=== PATIENT | male | born 1985 | race Caucasian/White ===

== ENCOUNTER 2016-10-13 17:53 | Emergency (ER) | payer OTHER ==
[~2016-10-13] VITALS: Ht 175.3 cm; Wt 72.6 kg
[2016-10-13 18:29] VITALS: BP 106/71
--- NOTE | 2016-10-13 18:33 | NUR ---
TO LOBBY PER ERMD.WILL COLLECT URINE SPECIMEN
[2016-10-13] MEDS ORDERED: NACL 0.9% 1,000 ML IV SCH (18:34)
[2016-10-13] MEDS ORDERED: AMPICILLIN/SULBACTAM 3 GM in NACL 0.9% 100 ML IV ONE (18:40)
[2016-10-13] MEDS ORDERED: NACL 0.9% 1,000 ML IV ONE (18:40)
--- NOTE | 2016-10-13 18:40 | NUR ---
Patient to bed 06.
[2016-10-13] MEDS ORDERED: AMPICILLIN/SULBACTAM 3 GM VIAL ONE (18:48)
--- NOTE | 2016-10-13 19:00 | NUR ---
31/M TO ED WITH C/O ABSCESS TO RIGHT ARM X3 DAYS S/P HEROIN USE. ABSCESS RED AND WARM TO TOUCH. PAIN 6/10. LUNGS CLEAR BILAT. HR EVEN AND REGULAR. AAOX4. VSS. NO SIGNS OF DISTRESS.
--- NOTE | 2016-10-13 19:09 | NUR ---
Pt report given to ANA MARIA BOWERS. Transfer of care at this time.
--- NOTE | 2016-10-13 19:33 | NUR ---
LACTIC ACID 2.7. ER MD SHER AND ANA MARIA QUEZADA.
[2016-10-13] MEDS ORDERED: LIDOCAINE 1% 500 MG/50 ML VIAL INJ SCH (19:45)
[2016-10-13 20:34] VITALS: BP 106/71
--- NOTE | 2016-10-13 20:34 | NUR ---
Patient discharged with v/s stable. Written and verbal after care instructions given and explained. Patient verbalized understanding. Ambulatory with steady gait. All questions addressed prior to discharge. Advised to follow up with PMD.
== END 2016-10-13 20:34 | disposition home or self-care (01) ==
LOC: MED 17:53
DX: L02.413 Cutaneous abscess of right upper limb (principal)
CPT/HCPCS: 10060; 36415; 80053; 80305; 81001; 83605; 85025; 87040; 96365; 99285; J0295; J7030

== ENCOUNTER 2017-04-17 19:23 | Emergency (ER) | payer OTHER ==
[~2017-04-17] VITALS: Ht 175.3 cm; Wt 72.6 kg
[2017-04-17 20:11] VITALS: BP 99/66
--- NOTE | 2017-04-17 21:58 | NUR ---
Patient ambulated to OF2 to be evaluated as fast track by Dr. Berrios. RN evaluating patient.
--- NOTE | 2017-04-17 22:04 | NUR ---
Dr. Berrios evaluating patient in OF2.
[2017-04-17 22:22] VITALS: BP 111/68
--- NOTE | 2017-04-17 22:22 | NUR ---
Patient discharged with v/s stable. Written and verbal after care instructions given and explained. Patient alert, oriented and verbalized understanding of instructions. Ambulatory with steady gait. All questions addressed prior to discharge. ID band removed. Patient advised to follow up with PMD. Rx of MINOCYCLINE 100MG, MUPIROCIN 2%, MOTRIN 800 given. Patient educated on indication of medication including possible reaction and side effects. Opportunity to ask questions provided and answered.
== END 2017-04-17 22:22 | disposition home or self-care (01) ==
LOC: MED 19:23
DX: L71.9 Rosacea, unspecified (principal)
CPT/HCPCS: 99283

== ENCOUNTER 2017-04-23 11:08 | Emergency (ER) | payer OTHER ==
[~2017-04-23] VITALS: Ht 175.3 cm; Wt 68.0 kg
--- NOTE | 2017-04-23 11:08 | NUR ---
Patient BIBA [facility], transferred to bed 3. RN evaluating patient at bedside.
[2017-04-23 11:17] VITALS: BP 92/58
[2017-04-23] MEDS ORDERED: NACL 0.9% 1,000 ML IV ONE (11:20)
--- NOTE | 2017-04-23 11:20 | NUR ---
31 YO MALE BIB EMS FROM FIELD FOR ALOC DUE TO ETOH. DENIES N/V/D; SKIN IS PINK/WARM/DRY; AAOX4 WITH EVEN AND STEADY GAIT; LUNGS CLEAR BL; HR EVEN AND REGULAR; PT DENIES ANY FEVER, CP, SOB, OR COUGH AT THIS TIME; PATIENT STATES PAIN OF 0/10 AT THIS TIME; PATIENT POSITIONED FOR COMFORT; HOB ELEVATED; BEDRAILS UP X2; BED DOWN. ER MD MADE AWARE OF PT STATUS.
--- NOTE | 2017-04-23 11:31 | NUR ---
PT TAKEN TO CT
--- NOTE | 2017-04-23 11:51 | NUR ---
LAB AT BEDSIDE.
[2017-04-23 12:00] LABS: BASOPHILS # (AUTO) 0.3 K/uL (0.00-0.22); BASOPHILS % (AUTO) 1.8 % (0.0-2.0); EOSINOPHILS # (AUTO) 0.4 K/uL (0-0.4); EOSINOPHILS % (AUTO) 2.3 % (0.0-4.0); HEMATOCRIT 45.8 % (36-52); HEMOGLOBIN 14.6 g/dL (12.0-18.0); LYMPHOCYTES # (AUTO) 2.4 K/uL (2.0-11.5); LYMPHOCYTES % (AUTO) 14.4 % (20.5-51.1); MEAN CORPUSCULAR HEMOGLOBIN 28 pg (27-31); MEAN CORPUSCULAR HGB CONC 32 g/dL (33-37); MEAN CORPUSCULAR VOLUME 88 fL (80-94); MONOCYTES # (AUTO) 0.3 K/uL (0.8-1.0); MONOCYTES % (AUTO) 1.7 % (1.7-9.3); NEUTROPHILS # (AUTO) 13.4 K/uL (1.8-7.7); NEUTROPHILS % (AUTO) 79.8 % (42.2-75.2); RED BLOOD CELL COUNT(AUTO) 5.22 MIL/uL (4.20-6.10); RED CELL DISTRIBUTION WIDTH 14.8 % (11.6-13.7); WHITE BLOOD COUNT (AUTO) 16.8 K/uL (4.8-10.8)
[2017-04-23 12:15] LABS: ANION GAP 14.7 (8-16); CARBON DIOXIDE 26.6 mmol/L (21-32); CREATININE 0.9 mg/dL (0.7-1.3); PLATELET COUNT (AUTO) 791 K/uL (140-450); POTASSIUM 4.3 mmol/L (3.5-5.1)
[2017-04-23 12:21] LABS: ALBUMIN 3.5 g/dL (3.4-5.0); TOTAL BILIRUBIN 0.2 mg/dL (0.0-1.0)
[2017-04-23 12:24] LABS: PROTHROMBIN TIME 11.1 secs (10.8-13.4)
--- NOTE | 2017-04-23 12:25 | NUR ---
COMPLEATE BEDBATH. PT ALERT ,OREINTED TO NAME. PT STS" WHERE AM i?.Patient appears to be resting comfortably in bed. BP 109/68, P 58/MINS Respirations even and unlabored. WILL CONTINUE TO MONITOR.
--- NOTE | 2017-04-23 13:20 | NUR ---
IV removed, catheter intact and site benign. Applied folded 4x4 gauze and tape to stop bleeding. PT TOELRATED PROCEDURE WELL.
[2017-04-23 13:25] VITALS: BP 122/68
--- NOTE | 2017-04-23 13:25 | NUR ---
Patient discharged with v/s stable. Pt aa&ox4 at this time. Pt states " I feel a lot better". Written and verbal after care instructions given and explained. Patient verbalized understanding. Ambulatory with steady gait. All questions addressed prior to discharge. Advised to follow up with PMD.
== END 2017-04-23 13:25 | disposition home or self-care (01) ==
LOC: MED 11:08
DX: F10.10 Alcohol abuse, uncomplicated (principal); F11.10 Opioid abuse, uncomplicated
CPT/HCPCS: 36415; 70450; 71010; 80053; 82150; 83690; 85025; 85610; 85730; 96360; 96361; 99285; G0482; J7030; Q0092

== ENCOUNTER 2018-07-30 01:08 | Emergency (ER) | payer OTHER ==
[~2018-07-30] VITALS: Ht 175.3 cm; Wt 77.1 kg
[2018-07-30 01:12] VITALS: BP 109/61
--- NOTE | 2018-07-30 01:12 | NUR ---
TO BED # 9 AMBULATORY, REPORT GIVEN TO GLENDY RODGERS
--- NOTE | 2018-07-30 01:21 | NUR ---
33 Y/O M W/C/O REDNESS, SWELLING, PAIN ON BOTH HANDS FOR A WEEK. PT DENIES N/V/D; AAOX4, PERRL, WITH EVEN AND STEADY GAIT; LUNGS CLEAR BL, BREATHING UNLABORED; HR EVEN AND REGULAR, BL PERIPHERAL PULSES PRESENT; PT DENIES ANY FEVER, CP, SOB, OR COUGH AT THIS TIME; PT STATES 8/10 PAIN AT THIS TIME; VSS; PATIENT POSITIONED FOR COMFORT; HOB ELEVATED; BEDRAILS UP X2; BED DOWN.
--- NOTE | 2018-07-30 01:27 | NUR ---
PT HAS OPEN WOUNDS NOTED TO BL HANDS , NO ACTIVE BLEEDING OR DRAINAGE NOTED, PT C/O RT EAR PAIN AND REDNESS TO SKIN.
--- NOTE | 2018-07-30 01:59 | NUR ---
Dr. Berrios evaluating patient at bedside.
[2018-07-30] MEDS ORDERED: NEOMYCIN/POLYMYXIN/BACITRACIN 0.9 GM/1 PKT TP ONE (02:05)
[2018-07-30] MEDS ORDERED: SULFAMETH/TRIMETH DS 800/160MG 1 TAB PO ONE (02:05)
[2018-07-30 03:13] VITALS: BP 110/67
--- NOTE | 2018-07-30 03:13 | NUR ---
Patient discharged with v/s stable. Written and verbal after care instructions given and explained. Patient alert, oriented and verbalized understanding of instructions. Ambulatory with steady gait. All questions addressed prior to discharge. ID band removed. Patient advised to follow up with PMD. Rx of BACTRIM, MOTRIN given. Patient educated on indication of medication including possible reaction and side effects. Opportunity to ask questions provided and answered. Addendum: 07/30/18 at 0334 by [employer] PT PROVIDED W/ BUS PASS AND HOMELESS PACKET.
== END 2018-07-30 03:13 | disposition home or self-care (01) ==
LOC: MED 01:08
DX: L03.114 Cellulitis of left upper limb (principal); L03.113 Cellulitis of right upper limb
CPT/HCPCS: 90471; 90715; 99283